=== PATIENT | female | born 1935 | race Two or more races ===

== ENCOUNTER 2024-09-25 18:25 | Inpatient (IN) | payer MEDICARE, OTHER ==
[~2024-09-25] VITALS: Ht 152.4 cm; Wt 63.5 kg
[2024-09-25 18:43] LABS: BASOPHILS % (AUTO) 0.3 % (0.0-2.0); EOSINOPHILS # (AUTO) 0.1 K/uL (0.0-0.7); EOSINOPHILS % (AUTO) 1.1 % (0.0-7.0); HEMATOCRIT 42.9 % (31.2-41.9); HEMOGLOBIN 14.2 g/dL (10.9-14.3); LYMPHOCYTES % (AUTO) 8.7 % (20.5-51.5); MEAN CORPUSCULAR HEMOGLOBIN 27.7 uug (24.7-32.8); MEAN CORPUSCULAR HGB CONC 33 g/dL (32.3-35.6); MEAN CORPUSCULAR VOLUME 83.7 fL (75.5-95.3); MONOCYTES # (AUTO) 0.7 K/uL (0.1-1.30); MONOCYTES % (AUTO) 5.6 % (0.0-11.0); NEUTROPHILS # (AUTO) 9.9 K/uL (1.8-8.9); NEUTROPHILS % (AUTO) 84.3 % (38.5-71.5); PLATELET COUNT (AUTO) 172 K/uL (179-408); RED BLOOD CELL COUNT(AUTO) 5.13 MIL/uL (3.63-4.92); RED CELL DISTRIBUTION WIDTH 15.2 % (12.3-17.7); WHITE BLOOD COUNT (AUTO) 11.7 K/uL (3.8-11.8)
[2024-09-25 18:44] LABS: DIFFERENTIAL COMMENT 1
[2024-09-25 18:58] LABS: ALANINE AMINOTRANSFERASE 18 U/L (14-59); ALBUMIN 3.7 g/dL (3.4-5.0); ALKALINE PHOSPHATASE 70 U/L (50-136); ASPARTATE AMINOTRANSFERASE 15 U/L (15-37); BILIRUBIN,DIRECT 0.2 mg/dL (0.0-0.2); BILIRUBIN,TOTAL 1.2 mg/dL (0.2-1.0); CALCIUM 9.8 mg/dL (8.5-10.1); CARBON DIOXIDE 27 mmol/L (21-32); CHLORIDE 107 mmol/L (98-107); CREATININE 1.1 mg/dL (0.6-1.3); GLUCOSE 135 mg/dL (74-106); LIPASE 24 U/L (16-77); POTASSIUM 4.4 mmol/L (3.5-5.1); SODIUM SERUM 143 mmol/L (136-145); TOTAL PROTEIN, SERUM 7.4 g/dL (6.4-8.2); UREA NITROGEN, BLOOD 32 mg/dL (7-18)
[2024-09-25] MEDS ORDERED: ONDANSETRON 4 MG/2 ML VIAL ONE (19:03)
[2024-09-25] MEDS: ONDANSETRON 4 MG/2 ML VIAL IV ONE (19:30)
[2024-09-25] MEDS: MORPHINE SULFATE 4 MG/1 ML DISP.SYRIN IV ONE (19:31)
[2024-09-25 19:56] LABS: *BILIRUBIN,URIN NEGATIVE (NEGATIVE); *BLOOD, URINE NEGATIVE (NEGATIVE); *CLARITY,URINE CLEAR (CLEAR); *COLOR,URINE YELLOW (YELLOW); *KETONES,URINE TRACE (NEGATIVE); *PROTEIN,URINE NEGATIVE (NEGATIVE); *UROBILINOGEN,URINE 0.2 E.U./dl (NORMAL); LEUKOCYTE ESTERASE ,URINE 1+ (NEGATIVE); NITRITE, URINE NEGATIVE (NEGATIVE); RBC,URINE 0-3 /HPF (0-3); UGLUCOSE NEGATIVE (NEGATIVE)
[2024-09-25] MEDS ORDERED: ONDANSETRON 4 MG/2 ML VIAL IV PRN (22:15)
[2024-09-25] MEDS ORDERED: ENALAPRILAT DIHYDRATE 1.25 MG/1 ML VIAL IV PRN (22:15)
[2024-09-25] MEDS ORDERED: PIPERACILLIN SODIUM/TAZOBACTAM 3.375 G in IV DEXTROSE 5% 50 ML IV SCH (22:15)
[2024-09-25] MEDS ORDERED: ACETAMINOPHEN 650 MG SUPP.RECT RC PRN (22:15)
[2024-09-25] MEDS: IV D5 1/2 NS 1000 ML 1,000 ML IV PRN (22:38)
[2024-09-25 22:46] VITALS: BP 115/54; TEMP 97.9; O2SAT 95
[2024-09-25] MEDS ORDERED: PIPERACILLIN/TAZOBACTAM/D5W 50 ML IV ONE (23:37)
[2024-09-25] MEDS: PIPERACILLIN SODIUM/TAZOBACTAM 3.375 G in IV DEXTROSE 5% 50 ML IV SCH (23:50)
[2024-09-26] MEDS: MORPHINE SULFATE 2 MG/1 ML DISP.SYRIN IV PRN (00:26)
[2024-09-26] MEDS ORDERED: PIPERACILLIN/TAZOBACTAM/D5W 50 ML IV ONE (05:06)
[2024-09-26 05:30] VITALS: BP 167/53; TEMP 98.2; O2SAT 95
[2024-09-26 05:50] VITALS: BP 148/61; TEMP 98.2; O2SAT 95
[2024-09-26 07:31] VITALS: BP 98/41; TEMP 98.4; O2SAT 96
[2024-09-26 07:37] LABS: BASOPHILS % (AUTO) 0.2 % (0.0-2.0); EOSINOPHILS # (AUTO) 0.2 K/uL (0.0-0.7); EOSINOPHILS % (AUTO) 2.8 % (0.0-7.0); HEMOGLOBIN 13.1 g/dL (10.9-14.3); LYMPHOCYTES # (AUTO) 1.5 K/uL (0.8-4.8); LYMPHOCYTES % (AUTO) 22.9 % (20.5-51.5); MEAN CORPUSCULAR HEMOGLOBIN 28.2 uug (24.7-32.8); MEAN CORPUSCULAR HGB CONC 34 g/dL (32.3-35.6); MEAN CORPUSCULAR VOLUME 83.9 fL (75.5-95.3); MONOCYTES # (AUTO) 0.6 K/uL (0.1-1.30); MONOCYTES % (AUTO) 8.8 % (0.0-11.0); NEUTROPHILS # (AUTO) 4.1 K/uL (1.8-8.9); NEUTROPHILS % (AUTO) 65.3 % (38.5-71.5); PLATELET COUNT (AUTO) 162 K/uL (179-408); RED BLOOD CELL COUNT(AUTO) 4.65 MIL/uL (3.63-4.92); RED CELL DISTRIBUTION WIDTH 15.3 % (12.3-17.7); WHITE BLOOD COUNT (AUTO) 6.3 K/uL (3.8-11.8)
[2024-09-26 07:43] LABS: DIFFERENTIAL COMMENT 1
[2024-09-26 08:03] LABS: IRON, SERUM 63 ug/dL (50-175)
[2024-09-26 08:05] LABS: ALANINE AMINOTRANSFERASE 15 U/L (14-59); ALKALINE PHOSPHATASE 58 U/L (50-136); ASPARTATE AMINOTRANSFERASE 16 U/L (15-37); BILIRUBIN,TOTAL 1.7 mg/dL (0.2-1.0); CALCIUM 9.7 mg/dL (8.5-10.1); CARBON DIOXIDE 26 mmol/L (21-32); CHLORIDE 107 mmol/L (98-107); CREATININE 1.1 mg/dL (0.6-1.3); GLUCOSE 122 mg/dL (74-106); MAGNESIUM 1.8 mg/dL (1.8-2.4); PHOSPHOROUS 3.8 mg/dL (2.5-4.9); POTASSIUM 4.7 mmol/L (3.5-5.1); SODIUM SERUM 141 mmol/L (136-145); TOTAL PROTEIN, SERUM 6.4 g/dL (6.4-8.2); UREA NITROGEN, BLOOD 26 mg/dL (7-18)
[2024-09-26] MEDS: PANTOPRAZOLE SODIUM 40 MG VIAL IV SCH (08:52)
[2024-09-26 11:31] VITALS: BP 137/50; TEMP 97.7; O2SAT 96
[2024-09-26] MEDS ORDERED: DIATR MEGLU/DIATRIZOATE SODIUM 120 ML BOTTLE ONE (11:32)
[2024-09-26] MEDS: PIPERACILLIN SODIUM/TAZOBACTAM 3.375 G in IV DEXTROSE 5% 100 ML IV SCH (14:25)
[2024-09-26 16:00] VITALS: BP 127/45; TEMP 97.9; O2SAT 93
[2024-09-26] MEDS ORDERED: DOCU-141 PO (18:30)
[2024-09-26] MEDS ORDERED: SITA50TA PO (18:31)
[2024-09-26] MEDS ORDERED: MELO-105 PO (18:32)
[2024-09-26] MEDS ORDERED: VALS320T2 PO (18:34)
[2024-09-26] MEDS ORDERED: JANUVIA PO (18:36)
[2024-09-26] MEDS ORDERED: HYDR-3980 PO (18:39)
[2024-09-26] MEDS ORDERED: SENN8.6T19 PO (18:40)
[2024-09-26] MEDS ORDERED: CALC500T13 PO (18:42)
[2024-09-26] MEDS ORDERED: LIDO30AD10 TD (18:45)
[2024-09-26] MEDS ORDERED: NALO0.4V2 IM (18:47)
[2024-09-26 19:45] VITALS: BP 127/47; TEMP 97.8; O2SAT 95
[2024-09-27 00:13] VITALS: BP 135/50; TEMP 98; O2SAT 95
[2024-09-27 04:46] VITALS: BP 136/49; TEMP 98; O2SAT 94
[2024-09-27 07:43] VITALS: BP 153/56; TEMP 98.3; O2SAT 94
[2024-09-27] MEDS ORDERED: LOPERAMIDE HCL 1 MG/7.5 ML LIQUID GT PRN (10:30)
[2024-09-27] MEDS ORDERED: levoFLOXacin 500 MG/D5W 500 MG in PREMIXED 1 EACH IV SCH (10:45)
[2024-09-27 11:03] VITALS: BP 147/100; TEMP 98.2; O2SAT 98
[2024-09-27] MEDS: CIPROFLOXACIN IV 400 MG in PREMIXED 1 EACH IV SCH (12:53)
[2024-09-27 15:26] VITALS: BP 149/48; TEMP 98.2; O2SAT 97
[2024-09-27 19:00] VITALS: BP 129/44; TEMP 98.6; O2SAT 95
[2024-09-28] VITALS: BP 123/49; TEMP 98.8; O2SAT 95
[2024-09-28 04:10] VITALS: BP 126/61; TEMP 97.7; O2SAT 95
[2024-09-28 06:41] LABS: BASOPHILS % (AUTO) 0.3 % (0.0-2.0); EOSINOPHILS # (AUTO) 0.4 K/uL (0.0-0.7); EOSINOPHILS % (AUTO) 6.4 % (0.0-7.0); HEMATOCRIT 34.5 % (31.2-41.9); HEMOGLOBIN 11.9 g/dL (10.9-14.3); LYMPHOCYTES # (AUTO) 1.4 K/uL (0.8-4.8); LYMPHOCYTES % (AUTO) 23.8 % (20.5-51.5); MEAN CORPUSCULAR HEMOGLOBIN 28.7 uug (24.7-32.8); MEAN CORPUSCULAR HGB CONC 35 g/dL (32.3-35.6); MEAN CORPUSCULAR VOLUME 83.2 fL (75.5-95.3); MONOCYTES # (AUTO) 0.5 K/uL (0.1-1.30); MONOCYTES % (AUTO) 9.1 % (0.0-11.0); NEUTROPHILS # (AUTO) 3.5 K/uL (1.8-8.9); NEUTROPHILS % (AUTO) 60.4 % (38.5-71.5); PLATELET COUNT (AUTO) 140 K/uL (179-408); RED BLOOD CELL COUNT(AUTO) 4.15 MIL/uL (3.63-4.92); RED CELL DISTRIBUTION WIDTH 14.6 % (12.3-17.7); WHITE BLOOD COUNT (AUTO) 5.8 K/uL (3.8-11.8)
[2024-09-28 06:52] LABS: DIFFERENTIAL COMMENT 1
[2024-09-28 06:56] LABS: CALCIUM 8.6 mg/dL (8.5-10.1); CARBON DIOXIDE 29 mmol/L (21-32); CHLORIDE 108 mmol/L (98-107); CREATININE 1.1 mg/dL (0.6-1.3); GLUCOSE 143 mg/dL (74-106); MAGNESIUM 1.7 mg/dL (1.8-2.4); PHOSPHOROUS 3.1 mg/dL (2.5-4.9); POTASSIUM 3.7 mmol/L (3.5-5.1); SODIUM SERUM 144 mmol/L (136-145); UREA NITROGEN, BLOOD 17 mg/dL (7-18)
[2024-09-28 07:44] VITALS: BP 115/34; TEMP 97.7
[2024-09-28] MEDS ORDERED: LOPERAMIDE HCL 1 MG/7.5 ML LIQUID PO PRN (09:47)
[2024-09-28] MEDS ORDERED: LOPERAMIDE HCL 2 MG CAPSULE PO PRN (10:00)
[2024-09-28] MEDS: MAGNESIUM SULFATE/D5W 100 ML IV SCH (11:41)
[2024-09-28 12:06] VITALS: BP 147/60; TEMP 98.7
[2024-09-28] MEDS ORDERED: CIPR500S2 PO (14:34)
[2024-09-28 15:24] VITALS: BP 139/41; TEMP 97.9; O2SAT 97
[2024-09-28 19:40] VITALS: BP 145/44; TEMP 98.4; O2SAT 97
[2024-09-29 04:25] VITALS: BP 150/42; TEMP 97.7; O2SAT 97
[2024-09-29 07:14] LABS: CALCIUM 8.5 mg/dL (8.5-10.1); CARBON DIOXIDE 27 mmol/L (21-32); CHLORIDE 109 mmol/L (98-107); GLUCOSE 134 mg/dL (74-106); POTASSIUM 3.7 mmol/L (3.5-5.1); SODIUM SERUM 136 mmol/L (136-145); UREA NITROGEN, BLOOD 13 mg/dL (7-18)
[2024-09-29 08:08] VITALS: BP 153/45; TEMP 97.8; O2SAT 95
[2024-09-29] MEDS ORDERED: PHENOL/SODIUM PHENOLATE SPRAY 177 ML BOTTLE MM PRN (10:30)
[2024-09-29 11:01] VITALS: BP 152/48; TEMP 97.8; O2SAT 96
[2024-09-29 12:10] VITALS: BP 156/60; TEMP 97.8; O2SAT 95
[2024-09-29 14:59] VITALS: BP 149/47; TEMP 97.9; O2SAT 96
[2024-09-29] MEDS ORDERED: CIPR500S2 PO (15:14)
== END 2024-09-29 15:20 | DRG 389 ==
LOC: ER 18:25 → MEDSURG3 22:01 → TELE3 23:14 → MEDSURG3 09-28 18:27
PROVIDERS: ADMIT Internal Medicine; ATTEND Student in an Organized Health Care Education/Training Program
PROC: 0D9670Z Drainage of Stomach with Drainage Device, Via Natural or Artificial Opening (ICD-10-PCS; principal; 2024-09-25)
DX: K56.50 Intestinal adhesions [bands], unspecified as to partial versus complete obstruction (principal); J21.9 Acute bronchiolitis, unspecified; K52.1 Toxic gastroenteritis and colitis; K56.7 Ileus, unspecified; E11.22 Type 2 diabetes mellitus with diabetic chronic kidney disease; N18.9 Chronic kidney disease, unspecified; D17.71 Benign lipomatous neoplasm of kidney; K76.9 Liver disease, unspecified; T36.0X5A Adverse effect of penicillins, initial encounter; Y92.230 Patient room in hospital as the place of occurrence of the external cause; K44.9 Diaphragmatic hernia without obstruction or gangrene; K57.30 Diverticulosis of large intestine without perforation or abscess without bleeding; Z80.0 Family history of malignant neoplasm of digestive organs; Z80.3 Family history of malignant neoplasm of breast; Z90.49 Acquired absence of other specified parts of digestive tract; E78.5 Hyperlipidemia, unspecified; E89.0 Postprocedural hypothyroidism; R91.8 Other nonspecific abnormal finding of lung field; E83.42 Hypomagnesemia; I12.9 Hypertensive chronic kidney disease with stage 1 through stage 4 chronic kidney disease, or unspecified chronic kidney disease; N28.1 Cyst of kidney, acquired
CPT/HCPCS: 36415; 71045; 74250; 83550; 83690; 83735; 84100; 84484; 85025; 85730; 87086; G0378; J0744; J2270; J2405; J2470; J2543; J3475; Q9963